=== PATIENT | female | born 1975 | race Two or more races ===

== ENCOUNTER 2024-06-03 08:47 | Emergency (ER) | payer BC ==
[~2024-06-03] VITALS: Ht 165.1 cm; Wt 56.7 kg
[2024-06-03 11:12] LABS: HEMATOCRIT 34.9 % (36.0-45.00); HEMOGLOBIN 11.3 g/dL (12.0-15.00); MEAN CORPUSCULAR HEMOGLOBIN 22.1 pg (27.00-32.0); MEAN CORPUSCULAR HGB CONC 32.5 g/dl (32.0-36.0); PLATELET COUNT 320 K/uL (150-450); RED BLOOD COUNT 5.12 M/uL (4.00-6.00); RED CELL DISTRIBUTION WIDTH 14.7 % (11.5-14.5)
[2024-06-03 11:13] LABS: MEAN CELL VOLUME 68.1 fL (80.00-100.00)
== END 2024-06-03 12:56 | disposition home or self-care (01) ==
LOC: ER 08:48
PROVIDERS: General Practice
DX: B34.9 Viral infection, unspecified (principal); R05.9 Cough, unspecified; J00 Acute nasopharyngitis [common cold]; Z20.822 Contact with and (suspected) exposure to COVID-19